=== PATIENT | female | born 1960 | race African-American/Black ===

== ENCOUNTER 2025-03-14 07:13 | Inpatient (IN) | payer MEDICAID, MEDICARE, OTHER ==
[~2025-03-14] VITALS: Ht 162.6 cm; Wt 70.0 kg
[~2025-03-14 07:13] MED LIST: ACET-2708 MT; BACL-141 MT
[2025-03-14 07:32] VITALS: O2SAT 96
[2025-03-14 07:50] LABS: BASOPHILS % 0.6 % (0.0-2.0); EOSINOPHILS % 2.0 % (0.0-5.0); HEMATOCRIT. 36.5 % (36.0-48.0); HEMOGLOBIN. 11.6 g/dL (12.0-16.0); LYMPHOCYTES % 21.4 % (20.0-50.0); MEAN PLATELET VOLUME 9.8 fl (7.4-10.4); MONOCYTES % 6.2 % (2.0-8.0); NEUTROPHILS % 69.8 % (40.0-76.0); PLATELET 185 x1000/uL (130-400); RED BLOOD CELL COUNT 4.06 mill/uL (4.2-5.4); RED CELL DISTRIBUTION WIDTH 16.1 % (11.6-14.6)
[2025-03-14 08:12] LABS: CREATININE 1.0 mg/dL (0.6-1.0); UREA NITROGEN BLOOD 11 mg/dL (9-23)
[2025-03-14 08:13] LABS: ASPARTATE AMINOTRANSFERASE 12 IU/L (<34)
[2025-03-14 08:14] LABS: BILIRUBIN DIRECT < 0.1 mg/dL (<=3.0); BILIRUBIN TOTAL 0.3 mg/dL (0.1-1.0); PROTEIN TOTAL 7.7 g/dL (6.0-8.3)
[2025-03-14] MEDS: ACETAMINOPHEN 325MG TABLET PO ONE (08:15)
[2025-03-14] MEDS: MAGNESIUM/ALUMINUM HYDROXIDE/SIMETHICONE 30ML UDC PO ONE (08:15)
[2025-03-14] MEDS: FAMOTIDINE 20MG/2ML VIAL IV ONE (08:15)
[2025-03-14] MEDS: ONDANSETRON HCL 4MG/2ML INJ IV ONE (08:15)
[2025-03-14] MEDS: KETOROLAC 15MG/ML VIAL IV ONE (08:16)
[2025-03-14 08:26] LABS: TROPONIN I HIGH SENSITIVITY < 4 ng/L (3.0-34)
[2025-03-14] MEDS: CEFTRIAXONE 1GM/50ML 50 ML IV ONE (09:58)
[2025-03-14] MEDS: MORPHINE SULFATE 4 MG/ML INJ (FOR IV/IM USE) IV ONE (09:59)
[2025-03-14] MEDS: METRONIDAZOLE 500 MG PREMIX 100 ML IV ONE (10:00)
[2025-03-14] MEDS ORDERED: BUPIVACAINE HCL/PF 0.5% (5MG/ML) 10ML ONE (11:26)
[2025-03-14] MEDS ORDERED: SKIN ADHESIVE 0.7 GM EA TOP ONE (11:26)
[2025-03-14] MEDS ORDERED: FAMOTIDINE 20MG/2ML VIAL IV ONE (11:51)
[2025-03-14] MEDS ORDERED: ACETAMINOPHEN 1000MG/100ML 100 ML IV ONE (11:51)
[2025-03-14] MEDS ORDERED: LIDOCAINE HCL 1% 10 MG/ML 10ML VIAL ONE (11:56)
[2025-03-14] MEDS ORDERED: KETOROLAC 30MG/ML VIAL ONE (11:56)
[2025-03-14] MEDS ORDERED: PROPOFOL 200MG/20ML VIAL IV ONE (11:56)
[2025-03-14] MEDS ORDERED: ONDANSETRON HCL 4MG/2ML INJ ONE (11:56)
[2025-03-14] MEDS ORDERED: DEXAMETHASONE 4MG/ML 1ML VIAL ONE (11:56)
[2025-03-14] MEDS ORDERED: HYDROMORPHONE HCL/PF 1MG/ML INJ ONE (11:57)
[2025-03-14] MEDS ORDERED: MIDAZOLAM HCL 2 MG/2 ML VIAL ONE (11:57)
[2025-03-14] MEDS ORDERED: DOCUSATE SODIUM 100MG CAPSULE PO PRN (12:00)
[2025-03-14] MEDS ORDERED: GUAIFENESIN 200MG/10ML SUGAR FREE UDC PO PRN (12:00)
[2025-03-14] MEDS ORDERED: IPRATROPIUM/ALBUTEROL 0.5-3(2.5)MG/3ML NEB HHN PRN (12:00)
[2025-03-14] MEDS ORDERED: ACETAMINOPHEN 325MG TABLET PO PRN (12:00)
[2025-03-14] MEDS ORDERED: ONDANSETRON HCL 4MG/2ML INJ IV PRN (12:00)
[2025-03-14] MEDS ORDERED: MORPHINE SULFATE 10 MG/ML INJ (NOT FOR IM USE) IV PRN (12:00)
[2025-03-14] MEDS ORDERED: SUCCINYLCHOLINE CHLORIDE 200MG/10ML IV ONE (12:01)
[2025-03-14] MEDS ORDERED: ROCURONIUM BROMIDE 10MG/ML VIAL 5ML IV ONE (12:02)
[2025-03-14] MEDS ORDERED: HYDRALAZINE 20MG/ML VIAL IV PRN ×2 (12:15)
[2025-03-14] MEDS ORDERED: LABETALOL 5MG/ML 4ML INJ IV PRN (12:15)
[2025-03-14] MEDS ORDERED: NALOXONE HCL 0.4MG/ML VIAL IV PRN (12:15)
[2025-03-14] MEDS ORDERED: HYDRALAZINE 20MG/ML VIAL ONE (13:01)
[2025-03-14] MEDS: ONDANSETRON HCL 4MG/2ML INJ IV PRN (14:40)
[2025-03-14] MEDS: HYDROMORPHONE HCL/PF 1MG/ML INJ IV PRN (14:41)
[2025-03-14] MEDS: DIPHENHYDRAMINE 50MG/ML VIAL IV NR (16:27)
[2025-03-14] MEDS: METOCLOPRAMIDE HCL 10MG/2ML VIAL IV SCH (16:43)
[2025-03-14] MEDS: DEXT 5%/0.45% NACL 1000ML 1,000 ML IV SCH (17:20)
[2025-03-14] MEDS ORDERED: DEXTROSE 50% WATER 50ML SYRINGE IV PRN ×2 (19:30→23:45)
[2025-03-14 20:00] VITALS: BP 148/80; PULSE 72; RESP 16; TEMP 36.4; O2SAT 100
[2025-03-14 20:00] LABS: PHOSPHORUS 2.9 mg/dL (2.5-4.9)
[2025-03-14] MEDS: BLOOD SUGAR DIAGNOSTIC STRIP TEST SCH (20:00)
[2025-03-14 22:22] LABS: INR 1.0
[2025-03-15 04:00] VITALS: BP 158/74; PULSE 67; RESP 18; TEMP 36.7; O2SAT 99
[2025-03-15] MEDS: BLOOD SUGAR DIAGNOSTIC STRIP TEST SCH (06:25)
[2025-03-15] MEDS: INSULIN LISPRO 100 UNITS/ML SUBCUT SCH (06:25)
[2025-03-15 08:00] VITALS: BP 172/80; PULSE 69; RESP 17; TEMP 36.3; O2SAT 98
[2025-03-15] MEDS: ACETAMINOPHEN 325MG TABLET PO PRN (08:30)
[2025-03-15] MEDS: PANTOPRAZOLE SODIUM 40 MG/VIAL IV SCH (08:32)
[2025-03-15] MEDS ORDERED: AMOX1TAB16 MT ×2 (15:47→16:22)
== END 2025-03-15 11:11 | disposition left against medical advice (07) | DRG 233 ==
LOC: ER 07:13 → 7EST 11:15 → EDBEDREQTM 11:19 → EDBEDREQ 11:19 → ENRESERV 11:48
PROVIDERS: ADMIT Hospitalist; ATTEND Hospitalist
PROC: 0DTJ4ZZ Resection of Appendix, Percutaneous Endoscopic Approach (ICD-10-PCS; principal; 2025-03-14)
DX: K35.33 Acute appendicitis with perforation, localized peritonitis, and gangrene, with abscess (principal); E87.0 Hyperosmolality and hypernatremia; E87.20 Acidosis, unspecified; I82.890 Acute embolism and thrombosis of other specified veins; D64.9 Anemia, unspecified; I10 Essential (primary) hypertension; I16.0 Hypertensive urgency; R73.9 Hyperglycemia, unspecified; K76.0 Fatty (change of) liver, not elsewhere classified; Z53.29 Procedure and treatment not carried out because of patient's decision for other reasons; Z79.899 Other long term (current) drug therapy
CPT/HCPCS: 36415; 71045; 74177; 76705; 80048; 80076; 82728; 82962; 83540; 83550; 83605; 83735; 83880; 84100; 84145; 84484; 85025; 86850; 86900; 88304; 99285; A4606; J0330; J0360; J0665; J0696; J1100; J1171; J1200; J1308; J1885; J2003; J2250; J2270; J2405; J2470; J2704; J2765; J3490; J7030; A4217; J0131